=== PATIENT | female | born 1985 | race Caucasian/White ===

== ENCOUNTER 2022-04-30 13:46 | Emergency (ER) | payer BC, SELFPAY ==
[2022-04-30 13:46] VITALS: BP 148/92; PULSE 110; RESP 20; TEMP 36.2; O2SAT 99
[2022-04-30 13:55] VITALS: BP 148/92; PULSE 110; RESP 20; TEMP 36.2; O2SAT 98
--- NOTE | 2022-04-30 13:56 | ED.LOWEXIN ---
HPI - Extremity Injury (Lower) General Chief Complaint: Extremity Injury, Lower Stated Complaint: right leg pain Time Seen by Provider: 04/30/22 13:55 Source: patient Mode of arrival: ambulatory Limitations: no limitations History of Present Illness HPI Narrative: 36-year-old female had ankle surgery by Dr. Martines 2 days ago. She had surgery of her ankle ligaments. She presents to the ER with -- right ankle pain around her suture site. -- Called who advised that I should remove the ankle splint and check for evidence of infection. The patient denied any fever. MD complaint: ankle injury Onset (ago): hour(s) ( Pain started 2 hours ago.) Injury: Right: ankle Type of Injury: other ( Had ankle surgery 2 days ago.) Severity: severe Relieving factors: nothing Exacerbating factors: nothing Other symptoms: none Related Data Home Medications Medication Instructions Recorded Confirmed dutasteride 0.5 mg capsule 0.5 mg PO DAILY 04/30/22 04/30/22 levothyroxine 88 mcg tablet 88 mcg PO DAILY 04/30/22 04/30/22 spironolactone 50 mg tablet 50 mg PO DAILY 04/30/22 04/30/22 Allergies Allergy/AdvReac Type Severity Reaction Status Date / Time No Known Allergies Allergy Verified 04/30/22 14:02 Review of Systems Review of Systems: All systems reviewed & are unremarkable except as noted in HPI and below Constitutional: Constitutional: Reports as per HPI and Reports no additional constitutional complaints Eyes: Eyes: Reports as per HPI and Reports no additional eye complaints ENT: Reports system reviewed and no additional complaints, except as documented and Reports as per HPI Cardiovascular: Cardiovascular: Reports as per HPI and Reports no additional cardiovascular complaints Respiratory: Respiratory: Reports as per HPI and Reports no additional respiratory complaints Gastrointestinal: Gastrointestinal: Reports as per HPI and Reports no additional gastrointestinal complaints Genitourinary: Genitourinary: Reports no additional female genitourinary complaints and Reports as per HPI Musculoskeletal: Musculoskeletal: Reports no additional musculoskeletal complaints and Reports as per HPI Comments: postoperative pain in the right ankle Integumentary/Breasts: Skin/Breast: Reports system reviewed and no additional complaints, except as docu and Reports as per HPI Comments: Right ankle surgery Neurologic: Reports system reviewed and no additional complaints, except as documented and Reports as per HPI Psychiatric: Psychiatric: Reports no additional psychiatric complaints and Reports as per HPI Endocrine: Endocrine: Reports no additional endocrine complaints and Reports as per HPI Hematologic/Lymphatic: Hematologic/Lymphatic: Reports no additional hematologic/lymphatic complaints and Reports as per HPI Allergic/Immunologic: Allergic/Immunologic: Reports no additional allergic/immunologic complaints and Reports as per HPI [facility] Surgical History Surgical History (Updated 04/30/22 @ 14:17 by Cayetano Scott MD) History of ankle surgery Family History Family History (Updated 10/15/15 @ 09:03 by DOCTOR UNKNOWN) Mother Family history of osteoporosis Family history of heart disease in male family member before age 55 Father Family history of seizure disorder Other Cerebrovascular accident Diabetes mellitus Family history of cardiovascular disease Family history of malignant neoplasm Hypertension Social History Social History Smoking status: Never smoker Alcohol intake: current Exam Const: General: healthy appearing and no acute distress Nutritional Appearance: well nourished Orientation/consciousness: patient oriented x3 Limitations: no limitations and altered mental status HENMT: Head: normal to inspection Ears: external ears normal Face/Nose/Sinus: Normal external nose present Face and sinus: normal facial exam Mouth: Yes Normal oral and palatal mucosa present Thro
--- NOTE | 2022-04-30 14:17 | PC.NURSE ---
right lower leg dressing and splint removed per erp orders. 2 suture lines noted to right ant ankle. no drg noted from same. sutures intact. no redness or swelling noted around suture lines. no swelling noted to right ankle
[2022-04-30] MEDS: ONDANSETRON HCL ODT 4 MG TABLET PO (14:38)
[2022-04-30] MEDS: HYDROmorphone HCL INJ (*CRX) 2 MG/ML VIAL 0.5 MG IM (14:38)
[2022-04-30 15:16] VITALS: BP 117/70; PULSE 80; RESP 16; O2SAT 97
== END 2022-04-30 15:17 | disposition home or self-care (01) ==
PROVIDERS: Emergency Provider Internal Medicine Critical Care Medicine; PCP Family Medicine
DX: G89.18 Other acute postprocedural pain (principal); M25.571 Pain in right ankle and joints of right foot
CPT/HCPCS: 29515; 96372; 99284; A9270; J1170

== ENCOUNTER 2022-06-06 15:24 | Outpatient (RCR) | payer BC, SELFPAY ==
--- NOTE | 2022-06-06 16:26 | PTOPEVAL1 ---
Assessment and note entered by Sheldon Gramajo Evaluation Information Assessment Status Evaluation Diagnosis afterccare following surgery for osteochondral defect right ankle, r Onset 04/28/22 Subjective Information Pt. reports that she initial injured the foot after dropping a toy onto the right foot. She reports that following surgery she was NWB for 2 weeks. She reports that she returned to the doctor and was placed in a hard cast NWB for an additional 3 weeks. She reports that she was placed in a walking boot with crutches last week. She reports cuauhtemoc biggs is in the boot for 6 weeks. 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 Pt. reports that her goal for therapy is to return to walking normal. Reported Pain Level Pain Score 1: Self Report Assessment PT Clinical Summary Pt. is a 36 year old female who enters the clinic post right ankle surgery for osteochondral defect and lateral ligament repair. She presents with impaired ankle ROM, impaired strength, impaired gait and pain on this date. Continued treatment is indicated in order to improve these areas to allow for the pt. to achieve her goal of returning to normal ambulation. Plan of Care Interventions Electrical Stimulation,Gait Training,Hot Pack/Cold Pack,Manual Therapy,Neuro Re-education, Therapeutic Activities,Therapeutic Exercise,Self- Care/Home Management PT Services Indicated Yes Treatment Frequency and 1x/week x 6 visits Duration These treatments will address the objective and functional deficits as defined above. The patient will be advanced safely and appropriately in order for the patient to progress towards his/her prior level of function. Additional exercises will be introduced and as well as a comprehensive home exercise program upon discharge, if needed, ?to ensure carryover of functional gains achieved in the clinic. This treatment plan has been reviewed and agreement upon by the patient.
--- NOTE | 2022-08-16 07:25 | PTOPREEVAL ---
Assessment and note entered by JT File, PT Evaluation Information Assessment Status Re-evaluation Diagnosis afterccare following surgery for osteochondral defect right ankle, r Onset 04/28/22 Subjective Information patient reports she feels better this date. however, she reports she still has some tightness around the ankle and scar. she reports she would like to return to therapy to achieve full mobility and strength of the R ankle. Assessment PT Clinical Summary mrs. orlando presents to skilled PT about 4-5 weeks since her last visit. she presents this date with no pain in the R foot/ankle. she does continue to have limitations from full R ankle mobility and strength, as well as adhesions in the scar on the R foot/ankle. she would benefit from return to continued skilled PT to achieve full rom and strength of the R ankle to decrease risk of re- injury when performing activities on any unlevel surfaces. Plan of Care Interventions Manual Therapy,Neuro Re-education,Therapeutic Activities,Therapeutic Exercise,Self-Care/Home Management PT Services Indicated Yes Treatment Frequency and 2x weekly for 6 more visits from today Duration These treatments will address the objective and functional deficits as defined above. The patient will be advanced safely and appropriately in order for the patient to progress towards his/her prior level of function. Additional exercises will be introduced and as well as a comprehensive home exercise program upon discharge, if needed, ?to ensure carryover of functional gains achieved in the clinic. This treatment plan has been reviewed and agreement upon by the patient.
--- NOTE | 2022-08-24 17:06 | PTOPDC ---
Assessment and note entered by JT File, PT Evaluation Information Assessment Status Discharge Diagnosis afterccare following surgery for osteochondral defect right ankle, r Onset 04/28/22 Subjective Information patient reports the R ankle has no pain, but it has been locking up on her recently. she reports she is ready to DC therapy and will follow up with her surgeon about the locking. patient reports only slight increased pain in the R ankle after school and being up on her feet all day. Reported Pain Level Pain Score 0: Self Report Pain Score 0: Self Report Assessment PT Clinical Summary mrs. orlando presents to skilled PT with little pain, full strength, and only lacking achievement of 1 goal for rom of the R ankle. she does have some recent locking in the R ankle, but is going to follow up with her surgeon. she will DC skilled PT today and continue with HEP independent at home. Plan of Care PT Services Indicated Yes
== END 2022-08-24 17:08 | disposition home or self-care (01) ==
LOC: CHSPT 15:24
PROVIDERS: PCP Family Medicine
DX: Z47.89 Encounter for other orthopedic aftercare (principal)
CPT/HCPCS: 97110; 97140; 97161; 97530